=== PATIENT | female | born 1990 | race Two or more races ===

== ENCOUNTER 2021-03-04 10:40 | Emergency (ER) | payer BC, SELFPAY ==
[2021-03-04 10:48] VITALS: BP 101/68; PULSE 84; RESP 16; TEMP 36.9; O2SAT 100
--- NOTE | 2021-03-04 11:16 | ED.URI ---
HPI - URI/Sore Throat General Chief Complaint: Upper Respiratory Infection Stated Complaint: Sore Throat/Body Aches/ Cough Time Seen by Provider: 03/04/21 11:04 Source: patient and RN notes reviewed Mode of arrival: ambulatory Limitations: no limitations History of Present Illness HPI Narrative: Patient presents today complaining of 5-day history of sore throat, body aches, chills, cough, nasal congestion. She also reports a mild shortness of breath. She has been taking DayQuil, Sudafed, and using cough drops with some relief. She has had her COVID-19 vaccine. No history of asthma. MD elicited complaint: cough, sore throat and nasal congestion Related Data Allergies Allergy/AdvReac Type Severity Reaction Status Date / Time haloperidol [From Haldol] Allergy dystonia, Verified 03/04/21 10:58 jaw locked up, stroke symptoms Review of Systems Review of Systems: CONSTITUTIONAL: Denies fever, or sweats.+ Body aches, chills EYES: Denies visual changes, redness, or discharge. ENT: Denies rhinorrhea, otalgia.+ Congestion, sore throat CARDIOVASCULAR: Denies chest pain, palpitations, or edema. RESPIRATORY: + Cough, shortness of breath. GASTROINTESTINAL: Denies abdominal pain, nausea, vomiting, or diarrhea. GENITOURINARY: Denies dysuria or hematuria. SKIN: Denies rash, itching, or wounds. MUSCULOSKELETAL: Denies back pain, joint pain, or myalgia. NEUROLOGIC: Denies headache, numbness, tingling, or weakness. PSYCH: Denies depression or anxiety. PMFSH Comments At time of signature, I have reviewed and agree with nursing past medical, surgical, social and family history unless otherwise noted. Please see nursing chart for further information. There is no relevant family history pertinent to the presenting complaint Exam Narrative: GENERAL: Mildly ill-appearing, well-nourished, and in no acute distress. HEAD: Normocephalic, atraumatic. EYES: EOMI. No redness or drainage. Conjunctivae normal. ENT: Mucous membranes pink and moist. Nares congested. No rhinorrhea. TMs normal bilaterally. Throat severely erythematous without edema or exudate. Uvula midline. NECK: Normal AROM. Supple. Right anterior cervical chain tenderness. CHEST: No respiratory distress. Clear to auscultation. HEART: Regular rate and rhythm. No murmur appreciated. Normal peripheral pulses. EXTREMITIES: Normal range of motion. No edema. SKIN: Warm, dry, no rash. Capillary refill normal. Normal skin turgor. NEURO: No focal deficits. Alert and oriented x3. Gait steady. PSYCH: Normal affect. No signs of depression or anxiety. Course Vital Signs Vital signs: Vital Signs Temperature 98.5 F 03/04/21 10:48 Pulse Rate 84 03/04/21 10:48 Respiratory Rate 16 03/04/21 10:48 Blood Pressure 101/68 03/04/21 10:48 Pulse Oximetry 100 03/04/21 10:48 Temperature 98.5 F 03/04/21 10:48 Pulse Rate 84 03/04/21 10:48 Respiratory Rate 16 03/04/21 10:48 Blood Pressure 101/68 03/04/21 10:48 Pulse Oximetry 100 03/04/21 10:48 Reviewed MDM - URI/Sore Throat Differential Diagnosis Differential diagnosis: Likely upper respiratory infection, viral infection, bronchitis, pharyngitis and other (Strep throat, influenza, COVID-19) Lab Data Attestation: I reviewed the patient's lab results. Lab results narrative: Rapid COVID-19 negative Labs: Influenza A Screen Negative Reference Range: Negative Influenza B Screen Negative Reference Range: Negative Strep Screen Presumptive Negative *(Reference Range: Negative)* Critical Care Time Critical Care Time Critical Care Time: No Discharge Plan Discharge Clinical Impression: Upper respiratory infection Qualifiers: URI type: unspecified URI Qualified Code(s): J06.9 - Acute upper respiratory infection, unspecifie
== END 2021-03-04 11:43 | disposition home or self-care (01) ==
PROVIDERS: Emergency Provider Nurse Practitioner; PCP Family Medicine
DX: J06.9 Acute upper respiratory infection, unspecified (principal); J02.9 Acute pharyngitis, unspecified; Z20.822 Contact with and (suspected) exposure to COVID-19
CPT/HCPCS: 87081; 87426; 87804; 87880; 99213; C9803; G0463

== ENCOUNTER 2023-01-30 14:24 | Outpatient (CLI) | payer BC, SELFPAY ==
[2023-02-02 06:47] LABS: Progesterone 0.4 ng/mL (***)
== END 2023-01-30 14:25 | disposition home or self-care (01) ==
PROVIDERS: PCP Family Medicine; Visit Provider Obstetrics & Gynecology
DX: O20.9 Hemorrhage in early pregnancy, unspecified (principal); Z3A.00 Weeks of gestation of pregnancy not specified
CPT/HCPCS: 36415; 84144; 84702; 86850; 86900; 86901

== ENCOUNTER 2023-02-01 13:30 | Outpatient (CLI) | payer BC, SELFPAY ==
[2023-02-01 14:19] LABS: Beta HCG Quantitative < 2.39 mIU/ML
== END 2023-02-01 13:31 | disposition home or self-care (01) ==
LOC: ANHLAB 13:32
PROVIDERS: PCP Family Medicine; Visit Provider Obstetrics & Gynecology
DX: O20.9 Hemorrhage in early pregnancy, unspecified (principal); Z3A.00 Weeks of gestation of pregnancy not specified
CPT/HCPCS: 36415; 84702

== ENCOUNTER 2023-04-20 11:46 | Outpatient (CLI) | payer BC, SELFPAY ==
[2023-04-20 12:06] LABS: Hematocrit 44.4 % (37.0-47.0); Hemoglobin 14.4 g/dL (12.0-15.0); Mean Corpuscular HGB Conc 32.4 g/dl (32-36); Mean Corpuscular Hemoglobin 29.5 pg (26-34); Mean Platelet Volume 9.5 fl (7.4-10.4); Platelet Count Result 226 k/mm3 (150-375); Red Blood Count 4.88 M/mm3 (4.2-5.4); Red Cell Distribution Width 12.2 % (11.5-14.5); White Blood Count 5.7 K/mm3 (4.5-10.0)
[2023-04-20 12:24] LABS: Alanine Aminotransferase 39 U/L (6-35); Albumin Level 4.8 g/dL (3.5-5.1); Alkaline Phosphatase 89 U/L (38-126); Anion Gap 7 mmol/L (8-16); Aspartate Amino Transferase 33 U/L (14-36); Bilirubin,Total 0.5 mg/dL (0.2-1.3); Blood Urea Nitrogen 10 mg/dL (7-17); Calcium 9.9 mg/dL (8.4-10.2); Carbon Dioxide 26 mmol/L (22-30); Chloride 106 mmol/L (98-107); Estimated Glomerular Filt Rate > 60; Glucose 96 mg/dL (65-110); Potassium 4.3 mmol/L (3.4-5.0); Sodium 139 mmol/L (137-145)
[2023-04-20 12:55] LABS: Thyroid Stimulating Hormone 0.587 uIU/mL (0.465-4.680)
[2023-04-20 12:56] LABS: Hepatitis B Surface Antigen Negative (Negative)
[2023-04-20 13:04] LABS: HIV 1/2 Ab P24 Ag Result Negative (Negative)
[2023-04-20 13:13] LABS: Hepatitis C Virus Antibody Negative (Negative)
[2023-04-21 09:42] LABS: Rapid Plasma Reagin Non-Reactive (NonReactive)
[2023-04-23 12:52] LABS: Progesterone 12.7 ng/mL (***)
== END 2023-04-20 11:47 | disposition home or self-care (01) ==
LOC: ANHLAB 11:48
PROVIDERS: PCP Family Medicine; Visit Provider Obstetrics & Gynecology
DX: Z31.69 Encounter for other general counseling and advice on procreation (principal)
CPT/HCPCS: 36415; 80053; 84144; 84443; 85027; 86592; 86703; 86803; 87340; G0432

== ENCOUNTER 2023-05-26 15:55 | Outpatient (CLI) | payer BC, SELFPAY ==
[2023-05-26 16:45] LABS: Alanine Aminotransferase 18 U/L (6-35); Albumin Level 4.5 g/dL (3.5-5.1); Alkaline Phosphatase 59 U/L (38-126); Aspartate Amino Transferase 21 U/L (14-36); Bilirubin,Total 0.6 mg/dL (0.2-1.3)
== END 2023-05-26 15:56 | disposition home or self-care (01) ==
LOC: ANHLAB 15:56
PROVIDERS: PCP Family Medicine; Visit Provider Obstetrics & Gynecology
DX: R74.8 Abnormal levels of other serum enzymes (principal)
CPT/HCPCS: 36415; 80076

== ENCOUNTER 2023-09-18 13:55 | Outpatient (CLI) | payer BC, SELFPAY ==
[2023-09-18 14:37] LABS: Beta HCG Quantitative 36.29 mIU/ML
[2023-09-19 15:43] LABS: Progesterone 24.8 ng/mL
== END 2023-09-18 13:56 | disposition home or self-care (01) ==
LOC: ANHLAB 13:56
PROVIDERS: PCP Family Medicine; Visit Provider Obstetrics & Gynecology
DX: O09.299 Supervision of pregnancy with other poor reproductive or obstetric history, unspecified trimester (principal); Z3A.00 Weeks of gestation of pregnancy not specified
CPT/HCPCS: 36415; 84144; 84702

== ENCOUNTER 2023-09-20 13:09 | Outpatient (CLI) | payer BC, SELFPAY ==
[2023-09-20 14:27] LABS: Beta HCG Quantitative 101.99 mIU/ML
== END 2023-09-20 13:10 | disposition home or self-care (01) ==
LOC: ANHLAB 13:10
PROVIDERS: PCP Family Medicine; Visit Provider Obstetrics & Gynecology
DX: O09.299 Supervision of pregnancy with other poor reproductive or obstetric history, unspecified trimester (principal)
CPT/HCPCS: 36415; 84702

== ENCOUNTER 2023-10-05 14:50 | Outpatient (CLI) | payer BC, SELFPAY ==
--- NOTE | ~2023-10-05 | US_ITS ---
EXAMINATION: US OB <=14 wk fetus w TV INDICATION: O36.80X0 - with inconclusive viability, n... TECHNIQUE: Sonography of the pelvis was performed by transabdominal and transvaginal techniques. COMPARISON: None. RESULT: Uterus: 9.0 x 6.7 x 4.7 cm. Anteverted. Intrauterine gestational sac: Single present. Yolk sac: 0.4 cm . Embryo: Single present. [place] rump length: 0.37 cm, corresponding gestational age 6 weeks, 0 days. Gestational heart rate: present 95 bpm. Subgestational hematoma: Mixed echogenicity collection at the inferior aspect of the gestational sac measuring 1.8 x 1.0 x 2.5 cm . Right ovary: 2.8 x 2.2 x 1.7 cm. Vascular flow is present. No adnexal mass. Left ovary: 3.1 x 2.1 x 2.1 cm. Vascular flow is present. No adnexal mass. Pelvis free fluid: None. IMPRESSION: Single, live intrauterine gestation. bradycardia. Large subchorionic hematoma. Estimated Gestational Age: 6 weeks, 0 days by crown rump length. NADIRA by ultrasound 05/30/2024. Message describing the above abnormal findings left with the practice answering service at 8:56 PM on 10/06/2023 Reviewed, dictated and finalized at location [facility]. IMPRESSION: Single, live intrauterine gestation. bradycardia. Large subchorionic hematoma. Estimated Gestational Age: 6 weeks, 0 days by crown rump length. NADIRA by ultras ound 05/30/2024. Message describing the above abnormal findings left with the practice answering service at 8:56 PM on 10/06/2023
== END 2023-10-05 14:51 ==
LOC: GOSHIMG 14:50
PROVIDERS: PCP Family Medicine; Visit Provider Obstetrics & Gynecology
DX: O36.80X0 Pregnancy with inconclusive fetal viability, not applicable or unspecified (principal); Z3A.00 Weeks of gestation of pregnancy not specified
CPT/HCPCS: 76801; 76817

== ENCOUNTER 2023-10-16 09:35 | Outpatient (CLI) | payer BC, SELFPAY ==
--- NOTE | ~2023-10-16 | US_ITS ---
EXAMINATION: US OB <=14 wk fetus w TV DATE: 10/16/2023 10:44 INDICATION: Hemorrhage in early , unspecified. TECHNIQUE: Real-time transabdominal and transvaginal pelvic ultrasound was performed. COMPARISON: Ultrasound 10/05/2023 FINDINGS: TRANSABDOMINAL ULTRASOUND: The uterus measures measures 11.0 x 6.6 x 7.2 cm. TRANSVAGINAL ULTRASOUND: There is an intrauterine gestational sac. A yolk sac is identified. The fet al crown rump length measures 1.2 cm, which correlates with an estimated gestational age of 7 weeks a nd 2 day(s) (+/-) 5 day(s). heart motion is identified measuring 145 beats per minute (bpm) by M-mode Doppler. There is a small subchorionic hematoma measuring 2.1 x 1.0 x 1.8 cm. The right ovary measures 3.1 x 2.0 x 2.6 cm. The left ovary measures 2.5 x 2.2 x 1.8 cm. There is normal vascular nura w in the ovaries. There is no free fluid in the pelvis. IMPRESSION: 1. Single living intrauterine gestation with estimated date of delivery of 05/30/2024 based on the ul trasound from 10/05/2023. 2. Small subchorionic hematoma, stable in size from 10/05/2023. Reviewed, dictated and finalized at location [facility]. IMPRESSION: 1. Single living intrauterine gestation with estimated date of delivery of 05/12 based on the ultrasound from 10/05/2023. 2. Small subchorionic hematoma, stable in size from 10/05/2023.
== END 2023-10-16 09:36 | disposition home or self-care (01) ==
LOC: ANHIMG 09:38
PROVIDERS: PCP Family Medicine; Visit Provider Nurse Practitioner Family
DX: O20.9 Hemorrhage in early pregnancy, unspecified (principal); Z3A.00 Weeks of gestation of pregnancy not specified
CPT/HCPCS: 76801; 76817